=== PATIENT | male | born 1935 | race Caucasian/White ===

== ENCOUNTER 2019-09-03 06:55 | Emergency (ER) | payer MEDICARE, OTHER ==
[~2019-09-03] VITALS: Ht 177.8 cm; Wt 117.9 kg
[2019-09-03 07:00] VITALS: BP_SYST 159
--- NOTE | 2019-09-03 07:00 | NUR ---
Pt ambulated to bed 7
--- NOTE | 2019-09-03 07:08 | NUR ---
Patient arrived via POV with family. Patient AAOx4, and ambulatory with walker. Patient states he has been sick for approximately 2 weeks, with productive cough and ongoing SOB. Patient was seen at urgent care and given an inhaler and cough pills with no relief. Patient states he has had difficulty breathing, and difficulty sleeping for the past 2 days. Patient states history of COPD, CHF. Per family at bedside, he was found down yesterday from a coughing "fit." He was still breathing but continuously coughing. Patient states productive cough with yellow thick sputum. Will continue to follow up and monitor.
--- NOTE | 2019-09-03 07:16 | NUR ---
ER at bedside examining patient.
--- NOTE | 2019-09-03 07:24 | NUR ---
Blood collected and sent to lab.
--- NOTE | 2019-09-03 07:26 | NUR ---
Influenza swab was collected and sent to lab. Patient informed me, he did recieve the flu shot this year.
[2019-09-03] MEDS ORDERED: IPRATROPIUM/ALBUTEROL SULFATE 3 ML AMPUL.NEB (DUONEB) INH ONE (07:30)
--- NOTE | 2019-09-03 07:44 | NUR ---
RT at bedside for breathing treatment.
[2019-09-03 07:57] LABS: BASOPHILS # (AUTO) 0.1 K/uL (0.0-0.2); BASOPHILS % (AUTO) 0.7 % (0.0-2.0); EOSINOPHILS # (AUTO) 0.2 K/uL (0.0-0.4); EOSINOPHILS % (AUTO) 3.1 % (0.0-4.0); HEMATOCRIT 38.3 % (36-54); HEMOGLOBIN 13.1 g/dL (14.0-18.0); LYMPHOCYTES # (AUTO) 1.1 K/uL (1.0-5.5); LYMPHOCYTES % (AUTO) 14.6 % (20.5-51.5); MEAN CORPUSCULAR HEMOGLOBIN 31 pg (27-31); MEAN CORPUSCULAR HGB CONC 34 % (32-36); MEAN CORPUSCULAR VOLUME 91 fL (79.0-98.0); MONOCYTES # (AUTO) 0.7 K/uL (0.0-1.0); MONOCYTES % (AUTO) 8.9 % (1.7-9.3); NEUTROPHILS # (AUTO) 5.6 K/uL (1.8-7.7); NEUTROPHILS % (AUTO) 72.7 % (40.0-70.0); PLATELET COUNT (AUTO) 161 K/uL (130-430); RED BLOOD CELL COUNT(AUTO) 4.22 MIL/uL (4.2-6.2); RED CELL DISTRIBUTION WIDTH 14.8 % (9.0-15.0); WHITE BLOOD COUNT (AUTO) 7.8 K/uL (4.8-10.8)
[2019-09-03] MEDS ORDERED: ALBUTEROL SULFATE 0.083% 2.5 MG/3 ML VIAL.NEB INH ONE ×2 (08:00→12:15)
[2019-09-03] MEDS ORDERED: methylPREDNISolone SOD SUCC/PF 62.5 MG/ML VIAL IVP ONE (08:00)
[2019-09-03] MEDS ORDERED: IPRATROPIUM BROM 0.5 MG/2.5 ML VIAL.NEB (ATROVENT) INH ONE ×2 (08:00→12:15)
[2019-09-03 08:14] LABS: ANION GAP 11 (5-15); CALCIUM 8.8 mg/dL (8.4-11.0); CHLORIDE 99 mmol/L (98-107); CREATININE 1.28 mg/dL (0.55-1.30); GLUCOSE 105 mg/dL (70-99); POTASSIUM 3.4 mmol/L (3.5-5.1); SODIUM SERUM 137 mmol/L (136-145); UREA NITROGEN, BLOOD 18 mg/dL (8-21)
[2019-09-03 08:18] LABS: PROTHROMBIN TIME 10.5 SECS (9.5-12.5)
[2019-09-03 08:19] LABS: ALANINE AMINOTRANSFERASE 28 U/L (12-78); ALBUMIN 3.3 g/dL (3.4-4.8); ASPARTATE AMINOTRANSFERASE 27 U/L (10-37); TOTAL BILIRUBIN 0.8 mg/dL (0.0-1.0)
[2019-09-03] MEDS ORDERED: cefTRIAXone 2 GM VIAL ONE (08:31)
[2019-09-03 11:00] LABS: BILIRUBIN,URINE NEGATIVE (NEGATIVE); BLOOD, URINE NEGATIVE (NEGATIVE); CLARITY/URINE CLEAR (CLEAR); COLOR,URINE YELLOW (YELLOW); GLUCOSE,URINE NEGATIVE (NEGATIVE); KETONES,URINE NEGATIVE (NEGATIVE); LEUKOCYTE ESTERASE ,URINE NEGATIVE (NEGATIVE); NITRITE, URINE NEGATIVE (NEGATIVE); PROTEIN URINE NEGATIVE (NEGATIVE); UROBILINOGEN,URINE 0.2 (0.2-1.0)
[2019-09-03] MEDS ORDERED: AZITHROMYCIN 250 MG TABLET PO ONE (12:00)
--- NOTE | 2019-09-03 12:12 | NUR ---
Pt to be transfered to [facility]. Accepting physician is ED MD Bowles. ALS transport ETA [id number]. Number to call report
[2019-09-03] MEDS ORDERED: cloNIDine HCL 0.1 MG TABLET PO ONE (12:15)
--- NOTE | 2019-09-03 12:20 | NUR ---
BP 224/102, pt sitting on edge of bed laughing and speaking with family members at bedside. Dr. Puckett notified. Pt denies pain at this time. Medication to be ordered.
--- NOTE | 2019-09-03 12:30 | NUR ---
Respiratory at bedside for breathing tx
--- NOTE | 2019-09-03 12:43 | NUR ---
BP 152/75. Dr. Puckett notified. Clonidine 0.2mg to be held per .
[2019-09-03 13:18] VITALS: BP_SYST 159
--- NOTE | 2019-09-03 13:18 | NUR ---
Report called to ERICA Michelle at [facility]. Report given to EMS for transfer. Patient transfer consent is signed.
--- NOTE | 2019-09-03 13:19 | NUR ---
Patient to be transferred to [facility]. Is being transferred due to higher level of care. Receiving facility has accepting physician and available space. ER physician has signed transfer form. Patient or responsible green party has agreed to transfer and signed form. Patient belongings inventoried and will be sent with patient. Copy of nursing notes, lab reports, EKG, Physicians Orders and X-rays to be sent with patient. Report called to Viviana at receiving facility. Receiving physician is Dr. Bowles. [facility] has been called for transfer. Arrived for transfer.
== END 2019-09-03 13:18 | disposition short-term general hospital (02) ==
LOC: SED 06:55
DX: J44.1 Chronic obstructive pulmonary disease with (acute) exacerbation (principal); J96.00 Acute respiratory failure, unspecified whether with hypoxia or hypercapnia; I50.9 Heart failure, unspecified; I10 Essential (primary) hypertension; Z86.79 Personal history of other diseases of the circulatory system
CPT/HCPCS: 36415; 36600; 71045; 80053; 81003; 82803; 83605; 83880; 84484; 85025; 85610; 85730; 86710; 87040; 87086; 93005; 94640; 96365; 96375; 99285; J0696; J2930; J7613; J7620; Q0144